=== PATIENT | female | born 1965 | race American Indian/Alaskan Native ===

== ENCOUNTER 2021-11-24 21:22 | Emergency (ER) | payer BC ==
[2021-11-24 21:39] VITALS: BP 153/66
--- NOTE | 2021-11-25 06:03 | Emergency Department Report ---
ED General Adult HPI - General Chief complaint: Extremity Injury, Lower Stated complaint: LT FOOT PAIN Time Seen by Provider: 11/25/21 04:00 Source: patient Mode of arrival: Ambulatory Limitations: No Limitations - History of Present Illness -: Gradual, week(s) Location: lower extremity (Left foot heel with) Quality: aching, dull Consistency: constant Improves with: none Worsens with: movement, other (Pain is worse with ambulation and does not ease up when walking continues primarily located to the heel region no traumatic event) - Related Data Previous Rx's Medication Instructions Recorded Last Taken Type Ketorolac [Toradol] 10 mg PO Q6H PRN #14 11/25/21 Unknown Rx Allergies Allergy/AdvReac Type Severity Reaction Status Date / Time No Known Allergies Allergy Unverified 11/24/21 21:39 ED Review of Systems ROS: Stated complaint: LT FOOT PAIN Other details as noted in HPI Comment: All other systems reviewed and negative ED Past Medical Hx - Past Medical History Previous Medical History?: No - Surgical History Past Surgical History?: No - Medications Home Medications: Home Medications Medication Instructions Recorded Confirmed Last Taken Type Ketorolac [Toradol] 10 mg PO Q6H PRN #14 11/25/21 Unknown Rx ED Physical Exam - General Limitations: No Limitations General appearance: alert, in no apparent distress - Head Head exam: Present: atraumatic, normocephalic - Eye Eye exam: Present: normal appearance - ENT ENT exam: Present: mucous membranes moist - Neck Neck exam: Present: normal inspection - Respiratory Respiratory exam: Present: normal lung sounds bilaterally. Absent: respiratory distress - Cardiovascular Cardiovascular Exam: Present: regular rate, normal rhythm. Absent: systolic murmur, diastolic murmur, rubs, gallop - GI/Abdominal GI/Abdominal exam: Present: soft, normal bowel sounds - Extremities Exam Extremities exam: Present: normal inspection, tenderness (Tenderness to the area with palpation distal swelling noted. Pulses 2+ cap refills are brisk. Normal instep no callus are appreciated. No broken skin) - Back Exam Back exam: Present: normal inspection. Absent: CVA tenderness (R), CVA tenderness (L) - Neurological Exam Neurological exam: Present: alert, oriented X3, CN II-XII intact - Psychiatric Psychiatric exam: Present: normal affect, normal mood - Skin Skin exam: Present: warm, dry, intact, normal color. Absent: rash ED Course Vital Signs 11/24/21 21:37 Temperature 98.4 F Pulse Rate 84 Respiratory 16 Rate Blood Pressure 153/66 O2 Sat by Pulse 95 Oximetry Critical care attestation.: If time is entered above; I have spent that time in minutes in the direct care of this critically ill patient, excluding procedure time. ED Disposition Clinical Impression: Heel spur Disposition: HOME / SELF CARE / HOMELESS Is pt being admited?: No Does the pt Need Aspirin: No Condition: Stable Instructions: Heel Spur Prescriptions: Ketorolac [Toradol] 10 mg PO Q6H PRN #14 PRN Reason: Pain Referrals: [facility] [Provider Group] - 3-5 Days [facility], [Primary Care Provider] - 3-5 Days
== END 2021-11-25 06:21 | disposition home or self-care (01) ==
LOC: ED 21:22
DX: M77.32 Calcaneal spur, left foot (principal)
CPT/HCPCS: 99282

== ENCOUNTER 2022-03-07 08:33 | Observation (INO) | payer BC ==
[2022-03-07] MEDS ORDERED: ASPIRIN 325 MG TAB PO ONE (08:49)
[2022-03-07] MEDS ORDERED: ADENOSINE 6 MG/2 ML INJ ONE ×2 (09:08→09:15)
[2022-03-07] MEDS ORDERED: SODIUM CHLORIDE 0.9% 1000 ML 1,000 ML ONE ×2 (09:08→14:32)
[2022-03-07] MEDS ORDERED: LORazepam 2 MG/ML VIAL ONE ×2 (09:26→14:51)
[2022-03-07] MEDS ORDERED: LORazepam 2 MG/ML VIAL IV ONE (09:28)
--- NOTE | 2022-03-07 09:40 | Emergency Department Report ---
ED Palpitations HPI - General Stated Complaint: FAST HEART RATE Time Seen by Provider: 03/07/22 09:23 - History of Present Illness Initial Comments: 56-year-old morbidly obese female who presents with palpitation and has been going on since last night progressively getting worse. Initially patient thought he was going to go away went to sleep only to woke up this morning with worsening palpitation. Patient denies any heat or cold intolerance. Patient denies any recent cold symptoms. No use of [id number] anticongestion. No fever or chills reported. No recent cough or shortness of breath reported. No other modifying or positive factors noted. MD Complaint: rapid heart beat, "heart racing" - Related Data Home Medications Medication Instructions Recorded Confirmed Last Taken No Known Home Medications [No 03/07/22 03/07/22 Unknown Reported Home Medications] Allergies Allergy/AdvReac Type Severity Reaction Status Date / Time No Known Allergies Allergy Verified 03/07/22 13:12 ED Review of Systems ROS: Stated complaint: FAST HEART RATE Other details as noted in HPI Comment: All other systems reviewed and negative Cardiovascular: palpitations. denies: chest pain ED Past Medical Hx - Medications Home Medications: Home Medications Medication Instructions Recorded Confirmed Last Taken Type No Known Home Medications [No 03/07/22 03/07/22 Unknown History Reported Home Medications] ED Physical Exam - General Limitations: No Limitations General appearance: alert, in no apparent distress, anxious - Head Head exam: Present: normal inspection - Eye Eye exam: Present: normal appearance Pupils: Present: normal accommodation - ENT ENT exam: Present: normal exam, normal orophraynx, mucous membranes moist - Neck Neck exam: Present: normal inspection, full ROM. Absent: tenderness - Respiratory Respiratory exam: Present: normal lung sounds bilaterally. Absent: respiratory distress, accessory muscle use - Cardiovascular Cardiovascular Exam: Present: tachycardia, normal heart sounds, other (Tachy cardia) - GI/Abdominal GI/Abdominal exam: Present: soft, normal bowel sounds. Absent: distended, tenderness - Extremities Exam Extremities exam: Present: normal inspection, full ROM, normal capillary refill. Absent: tenderness, pedal edema, joint swelling - Back Exam Back exam: Absent: tenderness - Neurological Exam Neurological exam: Present: alert, oriented X3 - Psychiatric Psychiatric exam: Present: normal affect, anxious - Skin Skin exam: Present: warm, normal color. Absent: rash ED Course Vital Signs 03/07/22 03/07/22 03/07/22 09:08 09:16 09:18 Pulse Rate 156 H 150 H 154 H Respiratory 27 H 32 H 17 Rate Blood Pressure Blood Pressure 142/90 [Right] O2 Sat by Pulse 98 99 99 Oximetry 03/07/22 03/07/22 03/07/22 09:30 09:31 09:35 Pulse Rate 153 H 145 H 155 H Respiratory 20 22 22 Rate Blood Pressure 156/100 Blood Pressure 147/52 155/100 [Right] O2 Sat by Pulse 96 100 99 Oximetry 03/07/22 03/07/22 03/07/22 09:37 09:46 10:00 Pulse Rate 154 H 155 H 154 H Respiratory 18 18 29 H Rate Blood Pressure 142/91 142/91 140/92 Blood Pressure [Right] O2 Sat by Pulse 99 99 98 Oximetry 03/07/22 03/07/22 03/07/22 10:16 10:46 11:00 Pulse Rate 148 H 137 H 81 Respiratory 33 H 20 16 Rate Blood Pressure 141/103 162/96 125/83 Blood Pressure [Right] O2 Sat by Pulse 99 97 98 Oximetry 03/07/22 03/07/22 03/07/22 11:12 11:16 11:30 Pulse Rate 82 82 78 Respiratory 17 24 18 Rate Blood Pressure 118/77 123/77 Blood Pressure 118/77 [Right] O2 Sat by Pulse 99 97 99 Oximetry 03/07/22 03/07/22 03/07/22 11:46 12:00 12:11 Pulse Rate 79 80 78 Respiratory 13 19 Rate Blood Pressure 128/87 125/77 122/75 Blood Pressure [Right] O2 Sat by Pulse 97 98 Oximetry 03/07/22 03/07/22 03/07/22 12:16 12:30 12:46 Pulse Rate 77 76 75 Respiratory 11 L 20 18 Rate Blood Pressure 141/76 122/75 114/76 Blood Pressure [Right] O2 Sat by Pulse 99 98 98 Oximetry 03/07/22 03/07/22 03/07/22 13:00 13:16 13:30 Pulse Rate 73 63 61 Respiratory 13 18 9 L Rate Blood Pressure 121/76 117/80 102/64 Blood Pressure [Right] O2 Sat by Pulse 99 98 96 Oximetry 03/07/22 13:46 Pulse Rate 59 L Respiratory 16 Rate Blood Pressure 109/70 Blood Pressure [Right] O2 Sat by Pulse 99 Oximetry - Reevaluation(s) Reevaluation #1: 03/07/22 09:32 Presents with heart palpitation--and noted to be in SVT at a rate of 150 bpm--among the differential could be not limited to myocardial infection, pulmonary embolism, pneumonia, pneumothorax, hyperthyroidism, or other systemic infection--in order to rule this out we will go ahead and order routine labs that include CBC, CMP, urinalysis, thyroid panel, and drug screen and also cardiac enzyme with chest x-ray. In the meantime we will go ahead and treat to the SVT--with initial adenosine 6 mg x 1--given to the patient with no response. Second dose of adenosine at 12 mg IV x1 with short break on the rhythm to normal sinus for about 10 to 15 seconds then went back to SVT at a rate of 150 bpm. At this point cardiology consulted and I was able to speak with Dr. Westfall who plans to visit the patient in the emergency room. Reevaluation #2: 03/07/22 09:42 Dr Westfall came into the ED and saw patient. He wanted amiodarone while on 150 mg bolus and follow with IV drip while waiting for patient's chemistry and hematology. Unsure the cause at this point but will continue to monitor. Vital signs is stable at this point except the tachycardia tachyarrhythmia. Reevaluation #3: 03/07/22 12:54 Dr Urbano consulted who accept pt for further evaluation and treatment ED Medical Decision Making - Lab Data Result diagrams: 03/07/22 09:33 03/07/22 09:33 - EKG Data -: EKG Interpreted by Ks EKG shows normal: sinus rhythm Rate: tachycardia - EKG Data Interpretation: no acute changes 03/07/22 13:59 Noted is sinus tachycardia at a rate of 150 bpm and this abnormal ECG Critical Care Time: Yes (60) Critical care time in (mins) excluding proc time.: 60 Critical care attestation.: If time is entered above; I have spent that time in minutes in the direct care of this critically ill patient, excluding procedure time. This patient presented with tachyarrhythmia with elevated blood pressure and she was given initial adenosine 6 mg IV x1 and repeated 12 mg IV x1 with cardiology consult and due to high probability of clinically significant, life threatening deterioration, this patient required my highest level of preparedness to intervene emergently and I personally spent this critical care time directly and personally managing this patient. This critical care time included obtaining a history; examining this patient; pulse oximetry ; ordering and review of mary dies ; arranging urgent treatment with development of a management plan ; evaluation of patient's response to treatment ; frequent reassessment ; and, discussion with other providers. This critical care time was performed to assess and manage the high probability of imminent, life-threatening deter ioration that could result in multiple organ damage if not done in a timely fashion. ED Disposition Clinical Impression: Sustained supraventricular tachycardia Disposition: 09 ADMITTED INPATIENT Is pt being admited?: Yes Does the pt Need Aspirin: No Condition: Stable Instructions: Apixaban oral tablets Referrals: PRIMARY CARE, [Primary Care Provider] - 3-5 Days Time of Disposition: 12:54 (Dr Urbano consulted and accept pt)
[2022-03-07 09:46] LABS: Basophils % (Auto) 0.5 % (0.0-1.8); Eosinophils # (Auto) 0.1 K/mm3 (0.0-0.4); Eosinophils % (Auto) 1.4 % (0.0-4.3); Hemoglobin 14.3 gm/dl (10.1-14.3); Mean Corpuscular HGB Conc 33 % (30-34); Mean Corpuscular Volume 79 fl (79-97); Monocytes # (Auto) 0.9 K/mm3 (0.0-0.8); Monocytes % (Auto) 12.9 % (0.0-7.3); Platelet Count 237 K/mm3 (140-440); Red Blood Count 5.45 M/mm3 (3.65-5.03); Red Cell Distribution Width 14.7 % (13.2-15.2)
[2022-03-07] MEDS ORDERED: AMIODARONE 150 MG/100 ML-ED 150 MG/100 ML BAG IV ONE (09:46)
[2022-03-07] MEDS ORDERED: ADENOSINE 6 MG/2 ML INJ IV ONE ×2 (09:47)
[2022-03-07] MEDS ORDERED: SODIUM CHLORIDE 0.9% 1000 ML 1,000 ML IV ONE (09:47)
[2022-03-07] MEDS ORDERED: AMIODARONE 900 MG in DEXTROSE 5% IN WATER 482 ML IV SCH (10:00)
--- NOTE | 2022-03-07 10:02 | XRay Report ---
CHEST 1 VIEW 03/07/2022 8:36 AM INDICATION / CLINICAL INFORMATION: chest pain. COMPARISON: None available. FINDINGS: SUPPORT DEVICES: None. HEART / MEDIASTINUM: No significant abnormality. LUNGS / PLEURA: No significant pulmonary or pleural abnormality. No pneumothorax. ADDITIONAL FINDINGS: No significant additional findings. IMPRESSION: 1. No acute findings. Signer Name: Fausto Mack MD Signed: 03/07/2022 9:58 AM Workstation Name: [id number]
[2022-03-07] MEDS ORDERED: AMIODARONE 150 MG in DEXTROSE 5% IN WATER 100 ML IV ONE ×2 (10:03→11:00)
[2022-03-07] MEDS ORDERED: AMIODARONE 150 MG/3 ML INJ IV ONE (10:05)
[2022-03-07 10:12] LABS: Alanine Aminotransferase 10 units/L (7-56); Albumin 3.8 g/dL (3.9-5); BUN/Creatinine Ratio 18; Blood Urea Nitrogen 14 mg/dL (7-17); Calcium 8.9 mg/dL (8.4-10.2); Hemolysis Index 8
[2022-03-07 10:18] LABS: Free T4 (Free Thyroxine) 1.27 ng/dL (0.76-1.46)
--- NOTE | 2022-03-07 10:18 | Electrocardiograph Report ---
[facility] Test Date: 2022-03-07 Test Time: 08:52:51 Pat Name: ELGIN SANTANA Department: Room: Gender: F Needleworker: BARBARA : 1965 Requested By: ED DOC Order Number: [id number] Reading MD: Ubaldo Byrd Measurements Intervals [place] Rate: 150 P: 134 ME: 116 QRS: 189 QRSD: 154 T: -76 QT: 364 QTc: 576 Interpretive Statements ATRIAL FLUTTER WITH 2:1 AV BLOCK No previous ECG available for comparison Electronically Signed On 03-07-2022 10:17:45 EDT by Ubaldo Byrd
--- NOTE | 2022-03-07 10:30 | Consultation ---
History of Present Illness Consult date: 03/07/22 Requesting physician: GRICELDA PUGA Consult reason: other (atrial flutter) History of present illness: Patient is a 56-year-old female with no reported past medical history who presents today with complaint of palpitations which started occurring yesterday evening. Patient reports she was in her usual state of health when yesterday evening suddenly developed palpitations and felt her heart pounding. Patient states she went to bed and hoped that the sensation will go away. When she woke up this morning she felt that her palpitations were worse and decided to come to the ED for further evaluation. In the ED patient was found to be in a flutter with a rate trending into the 150s. Patient was giving adenosine twice however did not convert. Patient denies any complaints of chest pain, nausea, vomiting, diaphoresis, shortness of breath, or lightheadedness. Patient is previously unknown to our practice. Cardiology is consulted for atrial flutter with RVR. Past History Past Medical History: No medical history Past Surgical History: Social history: no significant social history Family history: cancer, stroke Medications and Allergies Allergies Allergy/AdvReac Type Severity Reaction Status Date / Time No Known Allergies Allergy Unverified 11/24/21 21:39 Home Medications Medication Instructions Recorded Confirmed Last Taken Type Ketorolac [Toradol] 10 mg PO Q6H PRN #14 11/25/21 Unknown Rx Active Meds: Active Medications Enoxaparin Sodium (Enoxaparin 100 Mg/1 Ml Inj) 100 mg SUB-Q BID LOUISA; Protocol Amiodarone HCl 900 mg/ (Dextrose) 500 mls @ 33.333 mls/hr IV DIRECT LOUISA; Protocol Sodium Chloride (Nacl 0.9% 1000 Ml) 1,000 mls @ 999 mls/hr IV BOLUS ONE Stop: 03/07/22 10:47 Last Admin: 03/07/22 09:30 Dose: 999 mls/hr Amiodarone HCl 150 mg/ (Dextrose) 103 mls @ 600 mls/hr IV ONCE ONE Stop: 03/07/22 11:10 Metoprolol Tartrate (Metoprolol Tartrate 50 Mg Tab) 50 mg PO BID LOUISA Review of Systems Constitutional: no weight loss, no weight gain, no fever, no chills, no weakness Ears, nose, mouth and throat: no nasal congestion, no nasal discharge, no sinus pressure Cardiovascular: palpitations, rapid/irregular heart beat, no chest pain, no lightheadedness, no shortness of breath, no dyspnea on exertion Respiratory: no shortness of breath, no dyspnea on exertion Gastrointestinal: no abdominal pain, no nausea, no vomiting Musculoskeletal: no neck stiffness, no neck pain Integumentary: no rash, no pruritis Neurological: no head injury, no transient paralysis, no weakness Psychiatric: no anxiety, no memory loss Endocrine: no cold intolerance, no heat intolerance Hematologic/Lymphatic: no easy bruising, no easy bleeding Physical Examination Vital Signs Pulse Resp BP Pulse Ox 154 H 17 142/90 99 03/07/22 09:18 03/07/22 09:18 03/07/22 09:18 03/07/22 09:18 General appearance: no acute distress HEENT: Positive: PERRL, Normocephaly Neck: Positive: trachea midline Cardiac: Positive: Irregularly Regular, Tachycardia Lungs: Positive: Normal Breath Sounds Neuro: Positive: Grossly Intact Abdomen: Positive: Soft Skin: Negative: Rash, Suspicious Lesions, Ulceration Extremities: Present: upper extr. pulses. Absent: edema Results 03/07/22 09:33 03/07/22 09:33 Cardiac Enzymes 03/07/22 Range/Units 09:33 AST 18 (5-40) units/L CBC 03/07/22 Range/Units 09:33 WBC 7.3 (4.5-11.0) K/mm3 RBC 5.45 H (3.65-5.03) M/mm3 Hgb 14.3 (10.1-14.3) gm/dl Hct 43.0 H (30.3-42.9) % Plt Count 237 (140-440) K/mm3 Lymph # (Auto) 2.0 (1.2-5.4) K/mm3 Hitchcock # (Auto) 0.9 H (0.0-0.8) K/mm3 Eos # (Auto) 0.1 (0.0-0.4) K/mm3 Baso # (Auto) 0.0 (0.0-0.1) K/mm3 Comprehensive Metabolic Panel 03/07/22 Range/Units 09:33 Sodium 137 (137-145) mmol/L Potassium 4.2 (3.6-5.0) mmol/L Chloride 106.9 (98-107) mmol/L Carbon Dioxide 21 L (22-30) mmol/L BUN 14 (7-17) mg/dL Creatinine 0.8 (0.6-1.2) mg/dL Glucose 104 H (65-100) mg/dL Calcium 8.9 (8.4-10.2) mg/dL AST 18 (5-40) units/L ALT 10 (7-56) units/L Alkaline Phosphatase 99 (35-129) units/L Total Protein 8.1 (6.3-8.2) g/dL Albumin 3.8 L (3.9-5) g/dL - Imaging and Cardiology Echo: pending EKG interpretations - Telemetry EKG Rhythm: Atrial Flutter - EKG Supraventricular dysrhythmia: atrial flutter Assessment and Plan Patient is a 56-year-old female with no reported past medical history who presents today with complaint of palpitations which started occurring evening prior to admission Atrial flutter with RVR Hypertension Obesity Plan: EKG shows atrial flutter rate 152 with no acute ischemic changes. Patient denies any complaints of chest pain. Troponins negative x1 Will initiate IV amiodarone bolus and drip for rate control Will initiate metoprolol 50 mg p.o. twice daily Anticoagulation with Lovenox 100 mg sub-Q twice daily TSH and mag pending Echo pending If patient remains in a flutter with RVR may consider cardioversion in the a.m. Patient to be n.p.o. after midnight Discussed plan of care with patient who verbalized understanding and acknowled gment Patient seen in conjunction with Dr. Byrd who agrees with this plan of care - Patient Problems (1) Atrial flutter with rapid ventricular response Status: Acute (2) HTN (hypertension) Status: Acute (3) Obesity Status: Acute
[2022-03-07] MEDS: METOPROLOL TARTRATE 50 MG TAB PO SCH ×2 (12:11→21:24)
[2022-03-07] MEDS: ENOXAPARIN 100 MG/1 ML INJ SUB-Q SCH ×2 (12:20→21:22)
[2022-03-07 14:42] LABS: Hematocrit 41.2 % (30.3-42.9); Mean Corpuscular HGB Conc 34 % (30-34); Mean Corpuscular Volume 78 fl (79-97); Platelet Count 278 K/mm3 (140-440); Red Blood Count 5.26 M/mm3 (3.65-5.03); Red Cell Distribution Width 14.9 % (13.2-15.2)
[2022-03-07 15:05] LABS: INR 0.96 (0.87-1.13); Partial Thromboplastin Time 26.2 Sec. (24.2-36.6)
--- NOTE | 2022-03-07 15:25 | History and Physical Report ---
History of Present Illness Date of examination: 03/07/22 Date of admission: 03/07/2022 Chief complaint: Palpitations since a.m. History of present illness: 56-year-old -[place] female with no significant past medical history comes in for palpitations since morning. Patient feels obese. Duration since. No chest pain. Confirmed that her heart was racing away. Came to the emergency room for further evaluation. In the emergency room patient was found to be in atrial flutter heart rate of 150/min. Patient was initiated on Adenosine X2 with which she reverted to sinus rhythm briefly for a few seconds again into atrial flutter with rapid ventricular rate. Patient was given IV amiodarone X1 and was started on amiodarone drip. No shortness of breath or chest pain or lightheadedness. Past History Past Medical History: No medical history Past Surgical History: Social history: no significant social history Family history: cancer, stroke Review of Systems Constitutional: no weight loss, no weight gain, no fever, no chills, no weakness Ears, nose, mouth and throat: no nasal congestion, no nasal discharge, no sinus pressure Cardiovascular: palpitations, rapid/irregular heart beat, no chest pain, no lightheadedness, no shortness of breath, no dyspnea on exertion Respiratory: no shortness of breath, no dyspnea on exertion Gastrointestinal: no abdominal pain, no nausea, no vomiting Musculoskeletal: no neck stiffness, no neck pain Integumentary: no rash, no pruritis Neurological: no head injury, no transient paralysis, no weakness Psychiatric: no anxiety, no memory loss Endocrine: no cold intolerance, no heat intolerance Hematologic/Lymphatic: no easy bruising, no easy bleeding Past History Past Medical History: No medical history Past Surgical History: Social history: no significant social history Family history: cancer, stroke Medications and Allergies Allergies Allergy/AdvReac Type Severity Reaction Status Date / Time No Known Allergies Allergy Verified 03/07/22 13:12 Home Medications Medication Instructions Recorded Confirmed Last Taken Type No Known Home Medications [No 03/07/22 03/07/22 Unknown History Reported Home Medications] Active Meds: Active Medications Apixaban (Apixaban 5 Mg Tab) 5 mg PO Q12HR LOUISA; Protocol Enoxaparin Sodium (Enoxaparin 100 Mg/1 Ml Inj) 100 mg SUB-Q BID LOUISA; Protocol Stop: 03/08/22 00:01 Last Admin: 03/07/22 12:20 Dose: Not Given Amiodarone HCl 900 mg/ (Dextrose) 500 mls @ 33.333 mls/hr IV DIRECT LOUISA; Protocol Last Titration: 03/07/22 14:15 Dose: 0.5 mg/min, 16.667 mls/hr Metoprolol Tartrate (Metoprolol Tartrate 50 Mg Tab) 50 mg PO BID LOUISA Last Admin: 03/07/22 12:11 Dose: 50 mg Exam - Constitutional Vitals: Temp Pulse Resp BP Pulse Ox 59 L 18 100/57 99 03/07/22 15:02 03/07/22 15:02 03/07/22 15:02 03/07/22 15:02 General appearance: Present: mild distress, well-nourished - EENT Eyes: Present: PERRL ENT: hearing intact, clear oral mucosa - Neck Neck: Present: supple, normal ROM - Respiratory Respiratory effort: normal Respiratory: bilateral: CTA - Cardiovascular Heart rate: 110 Rhythm: regularly irregular Heart Sounds: Present: S1 & S2. Absent: rub, click - Extremities Extremities: no ischemia, pulses intact, pulses symmetrical, No edema Peripheral Pulses: within normal limits - Abdominal General gastrointestinal: Present: soft, non-tender, non-distended, normal bowel sounds Female genitourinary: Present: normal - Integumentary Integumentary: Present: clear, warm, dry - Musculoskeletal Musculoskeletal: gait normal, strength equal bilaterally - Psychiatric Psychiatric: appropriate mood/affect, intact judgment & insight - Neurologic Neurologic: CNII-XII intact, moves all extremities - Allied Health Allied health notes reviewed: nursing, case management HEART Score - HEART Score History: Moderately suspicious Age: 45-65 Risk factors: 1-2 risk factors Troponin: Troponin T < 0.010 ng/mL (0.00-0.029) 03/07/22 14:23 Troponin: < normal limit - Critical Actions Critical Actions: 4-6 pts:12-16.6% risk of adverse cardiac event. Should be admi tted Results - Labs CBC & Chem 7: 03/07/22 14:23 03/07/22 14:23 Labs: Laboratory Last Values WBC 9.1 K/mm3 (4.5-11.0) 03/07/22 14:23 RBC 5.26 M/mm3 (3.65-5.03) H 03/07/22 14:23 Hgb 14.0 gm/dl (10.1-14.3) 03/07/22 14:23 Hct 41.2 % (30.3-42.9) 03/07/22 14:23 MCV 78 fl (79-97) L 03/07/22 14:23 MCH 27 pg (28-32) L 03/07/22 14:23 MCHC 34 % (30-34) 03/07/22 14:23 RDW 14.9 % (13.2-15.2) 03/07/22 14:23 Plt Count 278 K/mm3 (140-440) 03/07/22 14:23 Lymph % (Auto) 27.0 % (13.4-35.0) 03/07/22 09:33 [place] % (Auto) 12.9 % (0.0-7.3) H 03/07/22 09:33 Eos % (Auto) 1.4 % (0.0-4.3) 03/07/22 09:33 Baso % (Auto) 0.5 % (0.0-1.8) 03/07/22 09:33 Lymph # (Auto) 2.0 K/mm3 (1.2-5.4) 03/07/22 09:33 [place] # (Auto) 0.9 K/mm3 (0.0-0.8) H 03/07/22 09:33 Eos # (Auto) 0.1 K/mm3 (0.0-0.4) 03/07/22 09:33 Baso # (Auto) 0.0 K/mm3 (0.0-0.1) 03/07/22 09:33 Seg Neutrophils % 58.2 % (40.0-70.0) 03/07/22 09:33 Seg Neutrophils # 4.2 K/mm3 (1.8-7.7) 03/07/22 09:33 PT 13.8 Sec. (12.2-14.9) 03/07/22 14:23 INR 0.96 (0.87-1.13) 03/07/22 14:23 APTT 26.2 Sec. (24.2-36.6) 03/07/22 14:23 Sodium 137 mmol/L (137-145) 03/07/22 09:33 Potassium 4.2 mmol/L (3.6-5.0) 03/07/22 09:33 Chloride 106.9 mmol/L (98-107) 03/07/22 09:33 Carbon Dioxide 21 mmol/L (22-30) L 03/07/22 09:33 Anion Gap 13 mmol/L 03/07/22 09:33 BUN 14 mg/dL (7-17) 03/07/22 09:33 Creatinine 0.8 mg/dL (0.6-1.2) 03/07/22 14:23 Estimated GFR > 60 ml/min 03/07/22 14:23 BUN/Creatinine Ratio 18 % 03/07/22 09:33 Glucose 104 mg/dL (65-100) H 03/07/22 09:33 Calcium 8.9 mg/dL (8.4-10.2) 03/07/22 09:33 Magnesium 2.00 mg/dL (1.7-2.3) 03/07/22 11:59 Total Bilirubin 0.70 mg/dL (0.1-1.2) 03/07/22 09:33 AST 18 units/L (5-40) 03/07/22 09:33 ALT 10 units/L (7-56) 03/07/22 09:33 Alkaline Phosphatase 99 units/L (35-129) 03/07/22 09:33 Troponin T < 0.010 ng/mL (0.00-0.029) 03/07/22 14:23 Total Protein 8.1 g/dL (6.3-8.2) 03/07/22 09:33 Albumin 3.8 g/dL (3.9-5) L 03/07/22 09:33 Albumin/Globulin Ratio 0.9 % 03/07/22 09:33 TSH 1.480 mlU/mL (0.270-4.200) 03/07/22 09:33 Free T4 1.27 ng/dL (0.76-1.46) 03/07/22 09:33 Short CBC 03/07/22 03/07/22 Range/Units 09:33 14:23 WBC 7.3 9.1 (4.5-11.0) K/mm3 Hgb 14.3 14.0 (10.1-14.3) gm/dl Hct 43.0 H 41.2 (30.3-42.9) % Plt Count 237 278 (140-440) K/mm3 BMP 03/07/22 03/07/22 09:33 14:23 Sodium 137 Potassium 4.2 Chloride 106.9 Carbon Dioxide 21 L BUN 14 Creatinine 0.8 0.8 Glucose 104 H Calcium 8.9 Cardiac Enzymes 03/07/22 03/07/22 03/07/22 Range/Units 09:33 11:59 14:23 Troponin T < 0.010 < 0.010 < 0.010 (0.00-0.029) ng/mL Liver Function 03/07/22 Range/Units 09:33 Total Bilirubin 0.70 (0.1-1.2) mg/dL AST 18 (5-40) units/L ALT 10 (7-56) units/L Alkaline Phosphatase 99 (35-129) units/L Albumin 3.8 L (3.9-5) g/dL Assessment and Plan Advance Directives: Yes (Full code) VTE prophylaxis?: Chemical Plan of care discussed with patient/family: Yes - Patient Problems (1) Sustained supraventricular tachycardia Current Visit: Yes Status: Acute Plan to address problem: First episode of SVT Patient was given adenosine X2 followed by amiodarone IV push of 150 mg and started on IV amiodarone drip with improvement in heart rate to low 100s (2) Atrial flutter with rapid ventricular response Current Visit: Yes Status: Acute Plan to address problem: Patient was given adenosine initially X2 with brief conversion to normal sinus rhythm. Reverted back to atrial flutter with rapid ventricular rate. Amiodarone 150 mg IV push was given and started on amiodarone drip. For rate control Patient was also started on metoprolol. Patient's heart rate improved to the low 100s with atrial flutter. (3) HTN (hypertension) Current Visit: Yes Status: Chronic Qualifiers: Hypertension type: primary hypertension Qualified Code(s): I10 - Essential (primary) hypertension Plan to address problem: Patient initiated on metoprolol. (4) Obesity Current Visit: Yes Status: Chronic Qualifiers: Obesity classification: adult class 3 (BMI >= 40) Plan to address problem: Patient needs referral to bariatric surgery as outpatient. (5) Anticoagulation management encounter Current Visit: Yes Status: Acute Plan to address problem: Patient was initiated on Lovenox weight-based subcu (6) DVT prophylaxis Current Visit: Yes Status: Acute Plan to address problem: On Lovenox and GI prophylaxis (7) Advance care planning Current Visit: Yes Status: Acute Plan to address problem: Disease education conducted, care plan discussed, diagnosis discussed, prognosis discussed. Patient is full code. Patient acknowledges understanding and agr eement with care plan. +30 minutes.
[2022-03-07] MEDS ORDERED: HEPARIN 5,000 UNIT/1 ML VIAL SUB-Q SCH (15:30)
[2022-03-07] MEDS ORDERED: SODIUM CHLORIDE 0.9% 1000 ML 1,000 ML IV SCH (15:30)
[2022-03-07] MEDS ORDERED: MORPHINE 2 MG/1 ML INJ IV PRN (16:00)
[2022-03-07] MEDS ORDERED: HYDROmorphone 0.5 MG/0.5 ML INJ IV PRN (16:00)
[2022-03-07] MEDS ORDERED: oxyCODONE /ACETAMINOPHEN 5-325MG TAB PO PRN (16:00)
[2022-03-07] MEDS ORDERED: ONDANSETRON 4 MG/2 ML INJ IV PRN (16:00)
[2022-03-07] MEDS ORDERED: ACETAMINOPHEN 325 MG TAB PO PRN (16:00)
[2022-03-07] MEDS: FAMOTIDINE 10 MG TAB PO SCH ×2 (20:14→21:24)
--- NOTE | 2022-03-08 08:51 | Electrocardiograph Report ---
[facility] Test Date: 2022-03-07 Test Time: 09:17:52 Pat Name: ELGIN SANTANA Department: Room: A460 Gender: F Powerbuilder: BARBARA : 1965 Requested By: GRICELDA PUGA Order Number: [id number] Reading MD: Mauri Collins Measurements Intervals [place] Rate: 152 P: 221 [place]: 201 QRS: 149 QRSD: 139 T: -64 QT: 351 QTc: 561 Interpretive Statements aflutter Prolonged [place] interval Consider dextrocardia Compared to ECG 03/07/2022 08:52:51 First degree AV block now present Atrial flutter no longer present 2:1 AV block no longer present Electronically Signed On 03-08-2022 8:51:28 EDT by Mauri Collins
--- NOTE | 2022-03-08 08:57 | Electrocardiograph Report ---
[facility] Test Date: 2022-03-08 Test Time: 07:47:53 Pat Name: ELGIN SANTANA Department: Room: A460 Gender: F Sas Programmer: KACIE : 1965 Requested By: RADHA ZUNIGA Order Number: [id number] Reading MD: Mauri Collins Measurements Intervals [place] Rate: 61 P: -12 [place]: 163 QRS: 107 QRSD: 107 T: 47 QT: 460 QTc: 464 Interpretive Statements Sinus rhythm Low voltage, precordial leads Compared to ECG 03/07/2022 09:17:52 Low QRS voltage now present First degree AV block no longer present Electronically Signed On 03-08-2022 8:57:10 EDT by Mauri Collins
[2022-03-08] MEDS: METOPROLOL TARTRATE 50 MG TAB PO SCH (10:00)
[2022-03-08] MEDS ORDERED: METOPROLOL TARTRATE 50 MG TAB PO SCH (10:03)
[2022-03-08] MEDS: APIXABAN 5 MG TAB PO SCH ×2 (10:14→11:29)
[2022-03-08] MEDS: FAMOTIDINE 10 MG TAB PO SCH ×2 (10:15→11:30)
--- NOTE | 2022-03-08 10:24 | Progress Note ---
Assessment and Plan Patient is a 56-year-old female with no reported past medical history who presents today with complaint of palpitations which started occurring evening prior to admission Atrial flutter with RVR Hypertension Obesity Echo 03/07/2022-EF 50 to 55%. Flattened septum consistent with right ventricular volume and pressure overload. Mild diastolic dysfunction is present impaired laxation pattern. Right ventricle is moderately dilated. Mild tricuspid regurgitation. Mild pulmonary hypertension Plan: EKG shows atrial flutter rate 152 with no acute ischemic changes. Patient denies any complaints of chest pain. Troponins negative x2. AMI ruled out Repeat EKG this morning shows sinus rhythm no acute ischemic changes Stop IV amiodarone Patient noticed to have some hypotension overnight will decrease to metoprolol 25 mg p.o. twice daily Stop Lovenox and convert to Eliquis for anticoagulation Echo results noted above. Due to dilated right ventricle and mild pulmonary hypertension will order VQ scan to rule out PE VQ scan negative for PE If patient remains sinus rhythm patient can be discharged home this afternoon from a cardiac standpoint Discussed plan of care with patient who verbalized understanding and acknowledgment Patient has a follow-up appointment with Dr. Byrd, [facility] park services specialist, on 04/01/2022 at 3:15 PM in our [place] location. Phone #[phone] Patient seen in conjunction with Dr. Collins who agrees with this plan of care - Patient Problems (1) Atrial flutter with rapid ventricular response Current Visit: Yes Status: Acute (2) HTN (hypertension) Current Visit: Yes Status: Chronic Qualifiers: Hypertension type: primary hypertension Qualified Code(s): I10 - Essential (primary) hypertension (3) Obesity Current Visit: Yes Status: Chronic Qualifiers: Obesity classification: adult class 3 (BMI >= 40) Subjective Date of service: 03/08/22 Principal diagnosis: aflutter with RVR Interval history: Patient resting in bed in no acute distress. Patient reports that her palpitations have stopped Patient sinus high 50s to 60s on monitor Objective Vital Signs Temp Pulse Resp BP BP Pulse Ox 03/08/22 07:37 98.0 F 60 18 117/70 98 03/08/22 02:00 66 03/07/22 23:03 98.3 F 57 L 94/55 98 03/07/22 22:00 64 03/07/22 21:43 98 03/07/22 21:24 66 123/71 03/07/22 19:47 98.8 F 66 18 123/71 98 03/07/22 18:40 63 20 132/81 98 03/07/22 18:30 63 16 132/81 95 03/07/22 18:20 61 33 H 125/66 95 03/07/22 18:10 65 13 116/51 96 03/07/22 18:00 64 20 122/70 95 03/07/22 17:50 64 28 H 119/89 95 03/07/22 17:40 62 29 H 112/66 97 03/07/22 17:30 62 18 119/67 95 03/07/22 17:20 66 10 L 99/71 95 03/07/22 17:10 60 28 H 111/64 96 03/07/22 17:00 60 31 H 119/72 96 03/07/22 16:55 60 18 109/66 99 03/07/22 16:50 61 22 111/69 98 03/07/22 16:41 65 18 85/55 99 03/07/22 16:40 61 11 L 55/39 97 03/07/22 16:35 62 17 74/50 99 03/07/22 16:30 64 36 H 74/50 99 03/07/22 16:23 85 18 88/68 99 03/07/22 16:20 61 18 85/55 97 03/07/22 16:10 63 15 95/69 97 03/07/22 16:00 60 28 H 95/69 97 03/07/22 15:50 58 L 27 H 100/68 98 03/07/22 15:40 59 L 26 H 92/59 98 03/07/22 15:30 59 L 17 105/63 98 03/07/22 15:16 59 L 14 100/67 99 03/07/22 15:02 59 L 18 100/57 99 03/07/22 15:00 60 15 100/65 98 03/07/22 14:47 57 L 18 100/61 99 03/07/22 14:45 57 L 20 100/61 98 03/07/22 14:30 59 L 20 98 03/07/22 14:26 61 17 91/58 96 03/07/22 14:15 12 91/58 97 03/07/22 14:00 59 L 13 101/65 96 06/02/22 13:46 59 L 16 109/70 99 03/07/22 13:30 61 9 L 102/64 96 03/07/22 13:16 63 18 117/80 98 03/07/22 13:00 73 13 121/76 99 03/07/22 12:46 75 18 114/76 98 03/07/22 12:30 76 20 122/75 98 03/07/22 12:16 77 11 L 141/76 99 03/07/22 12:11 78 122/75 03/07/22 12:00 80 19 125/77 98 03/07/22 11:46 79 13 128/87 97 03/07/22 11:30 78 18 123/77 99 03/07/22 11:16 82 24 118/77 97 03/07/22 11:12 82 17 118/77 99 03/07/22 11:00 81 16 125/83 98 03/07/22 10:46 137 H 20 162/96 97 - Physical Examination General: No Apparent Distress HEENT: Positive: PERRL, Normocephaly Neck: Positive: trachea midline Cardiac: Positive: Reg Rate and Rhythm Lungs: Positive: Normal Breath Sounds Neuro: Positive: Grossly Intact Abdomen: Positive: Soft Skin: Negative: Rash, Suspicious Lesions, Ulceration Extremities: Present: upper extr. pulses. Absent: edema - Labs and Meds Coagulation 03/07/22 Range/Units 14:23 PT 13.8 (12.2-14.9) Sec. INR 0.96 (0.87-1.13) APTT 26.2 (24.2-36.6) Sec. CBC 03/07/22 Range/Units 14:23 WBC 9.1 (4.5-11.0) K/mm3 RBC 5.26 H (3.65-5.03) M/mm3 Hgb 14.0 (10.1-14.3) gm/dl Hct 41.2 (30.3-42.9) % Plt Count 278 (140-440) K/mm3 Comprehensive Metabolic Panel 03/07/22 Range/Units 14:23 Creatinine 0.8 (0.6-1.2) mg/dL - Imaging and Cardiology Echo: report reviewed - Telemetry EKG Rhythm: Sinus Rhythm - EKG Sinus rhythms and dysrhythmias: sinus rhythm
--- NOTE | 2022-03-08 12:19 | Nuclear Medicine Report ---
NUCLEAR MEDICINE PERFUSION LUNG SCAN INDICATION / CLINICAL INFORMATION: Evaluate for PE. History of chest pain and pulmonary hypertension. TECHNIQUE: 5.5 mCi of Tc-99m MAA were given by IV. COMPARISON: Chest radiograph dated 03/07/2022. FINDINGS: PERFUSION: No significant perfusion defects. ADDITIONAL FINDINGS: None. IMPRESSION: 1. Low probability for pulmonary embolism. Signer Name: Dawson Yuen MD Signed: 03/08/2022 12:15 PM Workstation Name: [email or web address]
[2022-03-08] MEDS ORDERED: METOPROLOL TARTRATE 25 MG TAB PO SCH (12:30)
[2022-03-08 13:13] LABS: Basophils % (Auto) 0.6 % (0.0-1.8); Eosinophils # (Auto) 0.1 K/mm3 (0.0-0.4); Eosinophils % (Auto) 1.6 % (0.0-4.3); Hematocrit 37.2 % (30.3-42.9); Hemoglobin 12.8 gm/dl (10.1-14.3); Lymphocytes # (Auto) 1.5 K/mm3 (1.2-5.4); Lymphocytes % (Auto) 23.4 % (13.4-35.0); Mean Corpuscular HGB Conc 35 % (30-34); Mean Corpuscular Volume 78 fl (79-97); Monocytes # (Auto) 0.7 K/mm3 (0.0-0.8); Monocytes % (Auto) 11.6 % (0.0-7.3); Platelet Count 222 K/mm3 (140-440); Red Blood Count 4.77 M/mm3 (3.65-5.03); Red Cell Distribution Width 14.5 % (13.2-15.2)
[2022-03-08 13:38] LABS: Alanine Aminotransferase 50 units/L (7-56); Albumin 3.9 g/dL (3.9-5); Blood Urea Nitrogen 14 mg/dL (7-17); Calcium 9.3 mg/dL (8.4-10.2); Hemolysis Index 3
[2022-03-08 13:41] LABS: BUN/Creatinine Ratio 23
--- NOTE | 2022-03-08 14:08 | Discharge Summary ---
Providers - Providers Date of Admission: 03/07/22 15:25 Date of discharge: 03/08/22 Attending physician: REBECA CLEMENTS MD 03/07/22 11:30 Consult to Cardiology [CONS] Stat Consulting Provider: MAKI BYRD Reason For Exam: Sustained SVT Primary care physician: [facility] Hospitalization Reason for admission: Atrial flutter with RVR Condition: Stable Pertinent studies: Reviewed. Procedures: VQ scanunremarkable Hospital course: Patient is a 56-year-old female with no reported past medical history who presents today with complaint of palpitations which started occurring yesterday evening. Patient reports she was in her usual state of health when yesterday evening suddenly developed palpitations and felt her heart pounding. Patient states she went to bed and hoped that the sensation will go away. When she woke up this morning she felt that her palpitations were worse and decided to come to the ED for further evaluation. In the ED patient was found to be in a flutter with a rate trending into the 150s. Patient was giving adenosine twice however did not convert. Patient denies any complaints of chest pain, nausea, vomiting, diaphoresis, shortness of breath, or lightheadedness. Patient was admitted for management of atrial flutter with RVR. In the ED, the patient received adenosine x2 after which she reverted to sinus rhythm before reentering atrial flutter with RVR. At this point she was loaded with IV amiodarone and initiated on amiodarone infusion. Cardiology was consulted for further management. Echo results revealed an EF 50-55% with a flattened septum consistent with right ventricular volume and pressure overload. The right ventricle was moderately dilated. The patient underwent VQ scan that was unremarkable for pulmonary embolism. The patient will be transitioned from amiodarone some Toprol tartrate 25 mg twice daily and Eliquis 5 mg twice daily for anticoagulation. The patient will follow up with cardiology in the outpatient setting on 04/01/2022 at 3:[address] Byrd. Patient is medically clear for discharge. Disposition: 01 HOME / SELF CARE / HOMELESS Final Discharge Diagnosis (Prints w/discharge instructions): Atrial flutter with RVR, morbid obesity Time spent for discharge: 45 min Core Measure Documentation - Palliative Care Palliative Care/ Comfort Measures: Not Applicable - Core Measures Any of the following diagnoses?: none Exam - Constitutional Vitals: Temp Pulse Resp BP Pulse Ox 98.3 F 67 16 116/76 97 03/08/22 12:03/08/22 12:03/08/22 12:03/08/22 12:03/08/22 12:09 General appearance: Present: no acute distress, well-nourished, obese - EENT Eyes: Present: PERRL, EOM intact ENT: hearing intact, clear oral mucosa, dentition normal - Neck Neck: Present: supple, normal ROM - Respiratory Respiratory effort: normal Respiratory: bilateral: CTA - Cardiovascular Rhythm: regular Heart Sounds: Present: S1 & S2 - Extremities Extremities: no ischemia, pulses intact, pulses symmetrical, No edema, normal temperature, normal color, Full ROM Peripheral Pulses: within normal limits - Abdominal General gastrointestinal: Present: soft, non-tender, non-distended, normal bowel sounds Female genitourinary: Present: deferred - Rectal Rectal Exam: deferred - Integumentary Integumentary: Present: clear, warm, dry - Musculoskeletal Musculoskeletal: strength equal bilaterally - Psychiatric Psychiatric: appropriate mood/affect, intact judgment & insight, memory intact, cooperative - Neurologic Neurologic: CNII-XII intact, moves all extremities - Allied Health Allied health notes reviewed: nursing Plan Activity: no restrictions Additional Instructions: Patient is a 56-year-old female with no reported past medical history who presents today with complaint of palpitations which started occurring yesterday evening. Patient reports she was in her usual state of health when yesterday evening suddenly developed palpitations and felt her heart pounding. Patient states she went to bed and hoped that the sensation will go away. When she woke up this morning she felt that her palpitations were worse and decided to come to the ED for further evaluation. In the ED patient was found to be in a flutter with a rate trending into the 150s. Patient was giving adenosine twice however did not convert. Patient denies any complaints of chest pain, nausea, vomiting, diaphoresis, shortness of breath, or lightheadedness. Patient was admitted for management of atrial flutter with RVR. In the ED, the patient received adenosine x2 after which she reverted to sinus rhythm before reentering atrial flutter with RVR. At this point she was loaded with IV amiodarone and initiated on amiodarone infusion. Cardiology was consulted for further management. Echo results revealed an EF 50-55% with a flattened septum consistent with right ventricular volume and pressure overload. The right ventricle was moderately dilated. The patient underwent VQ scan that was unremarkable for pulmonary embolism. The patient will be transitioned from amiodarone some Toprol tartrate 25 mg twice daily and Eliquis 5 mg twice daily for anticoagulation. The patient will follow up with cardiology in the outpatient setting on 04/01/2022 at 3:[address] Byrd. Patient is medically clear for discharge. Care Plan Goals: Patient is medically clear for discharge. Assessment: Patient is a 56-year-old female with no reported past medical history who presents today with complaint of palpitations which started occurring yesterday evening. Patient reports she was in her usual state of health when yesterday evening suddenly developed palpitations and felt her heart pounding. Patient states she went to bed and hoped that the sensation will go away. When she woke up this morning she felt that her palpitations were worse and decided to come to the ED for further evaluation. In the ED patient was found to be in a flutter with a rate trending into the 150s. Patient was giving adenosine twice however did not convert. Patient denies any complaints of chest pain, nausea, vomiting, diaphoresis, shortness of breath, or lightheadedness. Patient was admitted for management of atrial flutter with RVR. In the ED, the patient received adenosine x2 after which she reverted to sinus rhythm before reentering atrial flutter with RVR. At this point she was loaded with IV amiodarone and initiated on amiodarone infusion. Cardiology was consulted for further m anagement. Echo results revealed an EF 50-55% with a flattened septum consistent with right ventricular volume and pressure overload. The right ventricle was moderately dilated. The patient underwent VQ scan that was unremarkable for pulmonary embolism. The patient will be transitioned from amiodarone some Toprol tartrate 25 mg twice daily and Eliquis 5 mg twice daily for anticoagulation. The patient will follow up with cardiology in the outpatient setting on 04/01/2022 at 3:[address] Byrd. Patient is medically clear for discharge. Follow up with: GENNA MEDINA MD [Primary Care Provider] - 3-5 Days MAKI BYRD MD [Staff Physician] - 04/01/22 3:00 pm Forms: Work/School Release Form Prescriptions: Apixaban [Eliquis] 5 mg PO Q12HR #60 tablet Metoprolol [Lopressor TAB] 25 mg PO BID #60 tablet
[2022-03-08 16:01] VITALS: BP 116/68
== END 2022-03-08 15:52 | disposition home or self-care (01) ==
LOC: ED 08:33 → 4A 15:25 → INTOOBSV 15:25
PROVIDERS: ADMIT Internal Medicine; ATTEND Student in an Organized Health Care Education/Training Program
DX: I47.1 Supraventricular tachycardia (principal); Z68.41 Body mass index [BMI] 40.0-44.9, adult; I48.92 Unspecified atrial flutter; I10 Essential (primary) hypertension; E66.01 Morbid (severe) obesity due to excess calories; Z79.01 Long term (current) use of anticoagulants; Z98.891 History of uterine scar from previous surgery; Z79.899 Other long term (current) drug therapy; Z98.890 Other specified postprocedural states
CPT/HCPCS: 36415; 71045; 78580; 80053; 82565; 82962; 83735; 84439; 84443; 84484; 85025; 85027; 85610; 85730; 93005; 96361; 96365; 96366; 96372; 96375; 96376; 99291; A9540; C8929; G0378; J0153; J0282; J1650; J2060; J7030; J7060; 93306

== ENCOUNTER 2022-05-24 14:25 | Emergency (ER) | payer BC ==
[2022-05-24 15:20] VITALS: BP 137/70
== END 2022-05-25 09:56 | disposition left against medical advice (07) ==
LOC: ED 14:25
DX: R10.9 Unspecified abdominal pain (principal); Z53.21 Procedure and treatment not carried out due to patient leaving prior to being seen by health care provider
CPT/HCPCS: 93005